=== PATIENT | female | born 1955 | race Caucasian/White ===

== ENCOUNTER → 2016-08-18 | Outpatient (CLI) | payer OTHER ==
[~2016-08-18] MED LIST: BENICAR20 MG PO; CELEBREX 200 M200 MG PO; CLONAZEPAM 0.50.5 M1 PO; FLEXERIL PO; LUNESTA PO; NORCO 5-325 TA1 EACH PO; PERCOCET PO; SPIRONOLACTONE25 M1 PO; SPIRONOLACTONE25 M3 PO; SYNTHROID50 MCG PO; TRAZODONE 150150 M1 PO; ULTRAM 50MG TAB50 MG PO; VIVELLE-DOT1 EAC1 TRANSDERM; VYTORIN 10-201 EACH PO; VYTORIN 10-401 EACH PO
== END ==
LOC: MRI 10:32
DX: M47.896 Other spondylosis, lumbar region (principal)

== ENCOUNTER → 2016-09-02 | Outpatient (CLI) | payer OTHER ==
[~2016-09-02] VITALS: Ht 170.2 cm; Wt 78.5 kg
[~2016-09-02] MED LIST changes: +NABUMETONE 750750 M1 PO
--- NOTE | ~2016-09-02 | HPC ---
[facility] [address] [place] [address] PAIN MANAGEMENT CONSULTATION Name: NICKY MCELROY Room #: REG MARIIA oJse Luis#: [id number] Admission: 09/02/16 Attend Phys: Foreign Brooks DO Discharge: Date of : 53 Report #: [id number] THIS REPORT FOR: //name// CC: Darrel Andres HISTORY OF PRESENT ILLNESS: The patient is a very pleasant 61-year-old female, referred by Dr. Harris for evaluation of pain, low back, left greater than right. Pain affects the posterior thigh and calf. She states it is an aching discomfort in sensation. She notes she has paresthesia into the lateral swollen foot. Denies weakness or bowel or bladder continence changes. Rates her pain anywhere from 4-9 on a VAS. She has been using NSAID ibuprofen for some time. Describes burning, shooting, and aching pain that is exacerbated with bending, standing, or walking. REVIEW OF SYSTEMS: A complete review of systems was attached to chart and was gone over with the patient. She is . She does not smoke or drink alcohol to excess. History of hypertension, treated with spironolactone; some chronic anxiety and depression for which she takes trazodone and very rare clonazepam; dyslipidemia for which she is on a statin type medicine (Vytorin). She does use female hormone replacements. 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 Pain impact score is fairly low. PHYSICAL EXAMINATION: Reveals a 5 feet 7 inches, 165 pounds female. Blood pressure is 141/87, pulse 80, and respirations are 16. Cranial nerves 2-12 are grossly intact. Pupils are equal and react to light and accommodation. Extraocular muscles are intact. Cervical range of motion is full. Thyroid is unremarkable. Upper extremity strength is preserved. Heart is regular rhythmical without murmur. Lungs are clear to auscultation. Rises from chair using armrest, modestly antalgic gait. Lumbar flexion is limited. Left patellar reflexes absent, 1/4 on the right. Straight leg raise is positive bilaterally, left greater than right. Lower extremity strength is symmetric, though plantar flexion is a little diminished on both sides. DIAGNOSTIC STUDIES: Include MRI of the lumbar spine from 08/18/2016. L4-L5 notes significant disk bulging with moderate central disk extrusion, canals are quite severely stenotic at 0.45 cm. ASSESSMENT: Symptomatic lumbar radiculopathy secondary to spinal stenosis. RECOMMENDATIONS: 1. Epidural injection under fluoroscopy today. 2. Continue nonsteroidal anti-inflammatory medication, I have taken the liberty of writing for nabumetone 750 b.i.d. Discontinue [id number] [address] [address] PAIN MANAGEMENT CONSULTATION Name: NICKY MCELROY Room #: REG [facility] Jose Luis#: [id number] Admission: 09/02/16 Attend Phys: Foreign Brooks DO Discharge: Date of : 53 Report #: [id number] anti-inflammatory. 3. Follow up in 3 weeks for reevaluation. Thank you for allowing me to participate in the patient's care. I will keep you abreast of her progress. PROCEDURE NOTE: Transforaminal epidural injection bilateral L4-L5. PROCEDURE #1: Left L4-L5 transforaminal epidural injection under fluoroscopy. PROCEDURE NOTE: After both written and informed consent was obtained including risk of spinal cord damage, infection, increased pain and paralysis, the patient agreed to proceed. The patient was taken to the fluoroscopy suite, placed in a prone position with appropriate abdominal bolstering. After sterile prep with ChloraPrep and sterile drape, a skin wheal with 1% Xylocaine was raised. A 22 gauge 4-1/2 inch epidural Tuohy needle was inserted. From an oblique approach into the posterior-superior aspect of the left L4-L5 neural foramen with continuous pressure on the glass syringe plunger for loss of resistance. Glass syringe was filled with 2 cc of 0.1 Xylocaine. The glass loss of resistance syringe was removed. A low volume extension tubing was connected, negative aspiration was accomplished for cerebrospinal fluid or blood. 1 mL of Omnipaque was injected which showed spread both within the epidural space and laterally along the nerve root. This was followed with 40 mg of triamcinolone plus 1 mL of 1.5% preservative-free Xylocaine. Needle was partially withdrawn, 0.5 mL of Xylocaine was injected to clear the needle and the needle was removed. The area was cleansed, band-aid was applied. The patient was allowed to ambulate to the recovery room, discharged in good and stable condition. INJECTION #2: Right L4-L5 transforaminal epidural injection under fluoroscopy. PROCEDURE NOTE: After both written and informed consent was obtained including risk of spinal cord damage, infection, increased pain and paralysis, the patient agreed to proceed. The patient was taken to the fluoroscopy suite, placed in a prone position with appropriate abdominal bolstering. After sterile prep with ChloraPrep and sterile drape, a skin wheal with 1% Xylocaine was raised. A 22 gauge 4-1/2 inch epidural Tuohy needle was inserted. From an oblique approach into the posterior-superior aspect of the right L4-L5 neural foramen with continuous pressure on the glass syringe plunger for loss of resistance. Glass syringe was filled with 2 cc of 0.1 Xylocaine. The glass loss of resistance syringe was removed. A low volume extension tubing was connected, negative aspiration was accomplished for cerebrospinal fluid or blood. 1 mL of Omnipaque was injected which showed spread both within the epidural space and laterally along the nerve root. This was followed with 40 mg of triamcinolone plus 1 mL of 1.5% preservative-free Xylocaine. Needle was partially withdrawn, 0.5 mL of Xylocaine was injected to clear the needle and the needle was removed. [facility] [address] [place] [address] PAIN MANAGEMENT CONSULTATION Name: NICKY MCELROY Room #: REG [facility] Key.#: [id number] Admission: 09/02/16 Attend Phys: Foreign Brooks DO Discharge: Date of : 53 Report #: [id number] was cleansed, band-aid was applied. The patient was allowed to ambulate to the recovery room, discharged in good and stable condition. <ELECTRONICALLY SIGNED> By: Foreign Brooks DO 09/05/16 1427 [id number] Foreign Brooks DO /nt
[2016-09-02 12:46] VITALS: BP 141/87
== END | disposition home or self-care (01) ==
LOC: PAIN 07:51
DX: M54.16 Radiculopathy, lumbar region (principal); M48.06 Spinal stenosis, lumbar region

== ENCOUNTER → 2016-11-24 | Outpatient (CLI) | payer OTHER ==
[~2016-11-24] VITALS: Ht 170.2 cm; Wt 81.0 kg
[~2016-11-24] MED LIST changes: +IBUPROFEN 800800 M1 PO
--- NOTE | ~2016-11-24 | HPC ---
[facility] [address] [address] PAIN MANAGEMENT CONSULTATION Name: LILIBETHNICKY MCGOWAN Room #: REG MARIIA Jose Luis#: [id number] Admission: 11/24/16 Attend Phys: Foreign Brooks DO Discharge: Date of : 53 Report #: [id number] THIS REPORT FOR: //name// CC: Darrel Brooks The patient is a very pleasant 61-year-old female being treated for symptomatic lumbar radiculopathy secondary to spinal stenosis. She was seen in consultation on 09/02/2016, we did bilateral L4-L5 transforaminal epidural injections. The patient returns to pain clinic today noting she had dramatic improvement of baseline pain, the patient reports 90% relief for 2 months. She did have a consultation with Dr. Rodrick Tobias, who noted while she does have acute herniated disk, he suggested that if she continues to get good relief with interventional therapy, surgery could certainly be postpone and/or hopefully avoided. The patient returns to pain clinic today noting pain is a 4 on VAS, starting to recur, left greater than right low back. PHYSICAL EXAMINATION: Shows a pleasant 61-year-old female, BMI is 28 kg/m2. Vital signs stable as noted in the EMR. Rises from chair using armrest. Modestly antalgic gait. Diffuse tenderness across the low back. Positive straight leg raise on the left, though pain is on both sides. ASSESSMENT: Symptomatic lumbar radiculopathy secondary to spinal stenosis. RECOMMENDATION: Bilateral L4-L5 transforaminal epidural injections today, follow up simply as needed. PROCEDURE #1: Left L4-L5 transforaminal epidural injection under fluoroscopy. PROCEDURE NOTE: After both written and informed consent was obtained including risk of spinal cord damage, infection, increased pain and paralysis, the patient agreed to proceed. The patient was taken to the fluoroscopy suite, placed in a prone position with appropriate abdominal bolstering. After sterile prep with ChloraPrep and sterile drape, a skin wheal with 1% Xylocaine was raised. A 22 gauge 4-1/2 inch epidural Tuohy needle was inserted. From an oblique approach into the posterior-superior aspect of the left L4-L5 neural foramen with continuous pressure on the glass syringe plunger for loss of resistance. Glass syringe was filled with 2 cc of 0.1 Xylocaine. The glass loss of resistance syringe was removed. A low volume extension tubing was connected, negative aspiration was accomplished for cerebrospinal fluid or blood. 1 mL of Omnipaque was injected which showed spread both within the epidural space and laterally along the nerve root. This was followed with 40 mg of triamcinolone plus 1 mL of 1.5% preservative-free Xylocaine. Needle was partially withdrawn, 0.5 mL of Xylocaine was injected to clear the needle and the needle was removed. The area was cleansed, band-aid was applied. The patient was allowed to ambulate to the [address] [address] PAIN MANAGEMENT CONSULTATION Name: NICKY MCELROY Room #: REG MARIIA Amaya#: [id number] Admission: 11/24/16 Attend Phys: Foreign Brooks, Discharge: Date of : 53 Report #: [id number] recovery room, discharged in good and stable condition. PROCEDURE #2: Right L4-L5 transforaminal epidural injection under fluoroscopy. PROCEDURE NOTE: After both written and informed consent was obtained including risk of spinal cord damage, infection, increased pain and paralysis, the patient agreed to proceed. The patient was taken to the fluoroscopy suite, placed in a prone position with appropriate abdominal bolstering. After sterile prep with ChloraPrep and sterile drape, a skin wheal with 1% Xylocaine was raised. A 22 gauge 4-1/2 inch epidural Tuohy needle was inserted. From an oblique approach into the posterior-superior aspect of the right L4-L5 neural foramen with continuous pressure on the glass syringe plunger for loss of resistance. Glass syringe was filled with 2 cc of 0.1 Xylocaine. The glass loss of resistance syringe was removed. A low volume extension tubing was connected, negative aspiration was accomplished for cerebrospinal fluid or blood. 1 mL of Omnipaque was injected which showed spread both within the epidural space and laterally along the nerve root. This was followed with 40 mg of triamcinolone plus 1 mL of 1.5% preservative-free Xylocaine. Needle was partially withdrawn, 0.5 mL of Xylocaine was injected to clear the needle and the needle was removed. The area was cleansed, band-aid was applied. The patient was allowed to ambulate to the recovery room, discharged in good and stable condition. The patient was discharged in good and stable condition. <ELECTRONICALLY SIGNED> By: Foreign Brooks DO 11/25/16 0926 [id number] Foreign Brokos DO /nt
[2016-11-24 14:53] VITALS: BP 135/72
== END ==
LOC: PAIN 07:20
DX: M54.16 Radiculopathy, lumbar region (principal); M48.061 Spinal stenosis, lumbar region without neurogenic claudication; Z88.8 Allergy status to other drugs, medicaments and biological substances; Z79.899 Other long term (current) drug therapy

== ENCOUNTER → 2019-02-19 | Outpatient (CLI) | payer OTHER | LOC: CAT 07:16 | DX: Z13.6 Encounter for screening for cardiovascular disorders (principal); E78.00 Pure hypercholesterolemia, unspecified; I25.10 Atherosclerotic heart disease of native coronary artery without angina pectoris ==

== ENCOUNTER → 2019-07-30 | Outpatient (CLI) | payer OTHER ==
[2019-07-30 09:47] LABS: CHOLESTEROL 180 mg/dL (<200); HDL CHOLESTEROL 52 mg/dL (>40); LDL CHOLESTEROL 106 mg/dL (<100); TC:HDL 3.5 Ratio (Not establshd); TRIGLYCERIDE 114 mg/dL (<150); VLDL 23 mg/dL (<40)
[2019-07-31 01:06] LABS: GLYCOHEMOGLOBIN (HGB A1C) 6.4 % (4.8-5.6)
[2019-07-31 11:38] LABS: ALBUMIN 4.3 g/dL (3.4-5.0); CALCIUM 8.9 mg/dL (8.5-10.1); CREATININE 0.8 mg/dL (0.6-1.0); POTASSIUM 4.5 mmol/L (3.5-5.1); TOTAL BILIRUBIN 0.4 mg/dL (0.2-1.0); TOTAL PROTEIN 6.9 g/dL (6.4-8.2)
== END ==
LOC: LAB 07:20 → LABMALL 07:20 → LAB 16:06
PROVIDERS: ATTEND Family Medicine
DX: E78.41 Elevated Lipoprotein(a) (principal); R89.9 Unspecified abnormal finding in specimens from other organs, systems and tissues; R94.6 Abnormal results of thyroid function studies

== ENCOUNTER → 2019-11-20 | Outpatient (CLI) | payer OTHER | LOC: ULTRA 11:12 | PROVIDERS: ATTEND Family Medicine | DX: R92.8 Other abnormal and inconclusive findings on diagnostic imaging of breast (principal) ==

== ENCOUNTER → 2019-12-06 | Outpatient (CLI) | payer OTHER | LOC: LAB 09:40 | PROVIDERS: ATTEND Family Medicine | DX: Z20.828 Contact with and (suspected) exposure to other viral communicable diseases (principal) ==

== ENCOUNTER → 2020-06-11 | Outpatient (CLI) | payer OTHER | LOC: RAD 09:51 | PROVIDERS: ATTEND Family Medicine | DX: R92.2 Inconclusive mammogram (principal); R91.8 Other nonspecific abnormal finding of lung field ==

== ENCOUNTER → 2020-08-26 | Outpatient (CLI) | payer OTHER ==
[2020-08-26 10:42] LABS: ABSOLUTE NEUTROPHILS 3.7 thou/uL (1.4-8.2); BASOPHILS 0.9 % (0.0-2.0); EOSINOPHILS 1.3 % (0.0-3.0); HEMATOCRIT 34.2 % (37.0-47.0); HEMOGLOBIN 11.9 gm/dL (12.0-15.0); LYMPHOCYTES 21.5 % (24.0-44.0); MCH 34.2 pg (26.0-34.0); MCV 97.9 fL (80.0-100.0); MONOCYTES 12.6 % (1.0-8.0); PLATELET COUNT 213 thou/uL (150-400); POLYS 63.7 % (36.0-66.0); RBC 3.49 mil/uL (4.20-5.00); RDW 13.7 % (10.5-14.5); WBC 5.7 thou/uL (4.0-11.0)
[2020-08-26 11:00] LABS: ALBUMIN 3.8 g/dL (3.4-5.0); ANION GAP 10 mmol/L (7-16); BUN 7 mg/dL (7-18); CALCIUM 8.5 mg/dL (8.5-10.1); CHLORIDE 99 mmol/L (98-107); CHOLESTEROL 176 mg/dL (<200); CO2 28 mmol/L (21-32); CREATININE 0.9 mg/dL (0.6-1.0); GLUCOSE 132 mg/dL (74-106); HDL CHOLESTEROL 53 mg/dL (>40); LDL CHOLESTEROL 103 mg/dL (<100); SGOT 24 U/L (15-37); SGPT 33 U/L (30-65); SODIUM 137 mmol/L (136-145); TC:HDL 3.3 Ratio (Not establshd); TOTAL BILIRUBIN 0.6 mg/dL (0.2-1.0); TOTAL PROTEIN 6.9 g/dL (6.4-8.2); TRIGLYCERIDE 100 mg/dL (<150); VLDL 20 mg/dL (<40)
== END ==
LOC: LAB 07:57
PROVIDERS: ATTEND Family Medicine
DX: I10 Essential (primary) hypertension (principal); E11.9 Type 2 diabetes mellitus without complications; E78.5 Hyperlipidemia, unspecified

== ENCOUNTER → 2020-12-17 | Outpatient (CLI) | payer OTHER | LOC: RAD 11:22 | PROVIDERS: ATTEND Family Medicine | DX: R92.8 Other abnormal and inconclusive findings on diagnostic imaging of breast (principal) ==